=== PATIENT | male | born 1970 | race Caucasian/White ===

== ENCOUNTER 2023-11-14 08:45 | Emergency (ER) | payer BC, OTHER ==
[~2023-11-14] VITALS: Ht 172.7 cm; Wt 90.7 kg
[2023-11-14 09:00] VITALS: BP 152/94; PULSE 86; RESP 16; TEMP 98.1; O2SAT 98
[2023-11-14] MEDS: LORazepam 1 MG TAB PO ONE (09:43)
[2023-11-14] MEDS ORDERED: ATI.5 PO (09:45)
[2023-11-14] MEDS ORDERED: HYDR25CA1 PO (09:45)
== END 2023-11-14 10:02 | disposition home or self-care (01) ==
LOC: MED 08:45
DX: F41.9 Anxiety disorder, unspecified (principal); Z79.899 Other long term (current) drug therapy
CPT/HCPCS: 99283